=== PATIENT | male | born 1995 | race African-American/Black ===

== ENCOUNTER 2021-05-09 02:00 | Emergency (ER) | payer SELFPAY ==
[2021-05-09] MEDS ORDERED: Mineral Oil ENEMA FS SCH (02:45)
== END 2021-05-09 04:14 | disposition home or self-care (01) ==
LOC: CSHERS 02:00
DX: H61.23 Impacted cerumen, bilateral (principal); F17.210 Nicotine dependence, cigarettes, uncomplicated
CPT/HCPCS: 69210

== ENCOUNTER 2021-05-10 01:14 | Emergency (ER) | payer SELFPAY | END 2021-05-10 02:45 | disposition home or self-care (01) | LOC: CSHERS 01:14 | DX: H61.23 Impacted cerumen, bilateral (principal) | CPT/HCPCS: 99282 ==

== ENCOUNTER 2021-08-06 16:21 | Emergency (ER) | payer SELFPAY | END 2021-08-06 18:34 | disposition home or self-care (01) | LOC: CSHERS 16:21 | DX: S20.212A Contusion of left front wall of thorax, initial encounter (principal); Y04.0XXA Assault by unarmed brawl or fight, initial encounter | CPT/HCPCS: 71045; 93005 ==

== ENCOUNTER 2021-11-01 08:20 | Emergency (ER) | payer SELFPAY ==
[2021-11-01 10:04] LABS: SARS-CoV-2 NAA Rapid Test DETECTED (NotDetected)
== END 2021-11-01 09:09 | disposition home or self-care (01) ==
LOC: CSHERS 08:20
DX: U07.1 COVID-19 (principal); J06.9 Acute upper respiratory infection, unspecified
CPT/HCPCS: 99283; U0002

== ENCOUNTER 2022-01-08 14:22 | Emergency (ER) | payer SELFPAY ==
[2022-01-08] MEDS ORDERED: Dicyclomine 20 MG TAB ONE (17:24)
== END 2022-01-08 17:26 | disposition home or self-care (01) ==
LOC: CSHERS 14:22
DX: R10.84 Generalized abdominal pain (principal)
CPT/HCPCS: 99283

== ENCOUNTER 2022-06-26 10:54 | Emergency (ER) | payer SELFPAY ==
[2022-06-26] MEDS ORDERED: Docusate Sodium 100 MG/10 ML UDCUP FS SCH (14:00)
== END 2022-06-26 13:17 | disposition home or self-care (01) ==
LOC: CSHERS 10:54
DX: H61.23 Impacted cerumen, bilateral (principal)
CPT/HCPCS: 99281

== ENCOUNTER 2022-07-30 10:03 | Emergency (ER) | payer SELFPAY ==
[2022-07-30 10:46] LABS: Bilirubin Neg (Negative); Blood, Urine Negative (Negative); Clarity Clear (Clear); Glucose, Urine (Dipstick) Normal (Negative); Ketone, Urine Negative (Negative); Leukocyte 25 (Negative); Nitrite Negative (Negative); Protein, Urine (Dipstick) 15 mg/dl (Neg-Trace); Specific Gravity, Urine 1.015 (1.005-1.030)
[2022-07-30] MEDS ORDERED: Acetaminophen 500 MG TAB ONE (10:55)
[2022-07-30 11:02] LABS: #Monocytes 0.4 10x3/uL (0.0-1.1); #Neutrophils 3.8 10x3/uL (1.5-8.4); %Basophils 0.5 % (0.0-2.0); %Eosinophils 0.5 % (0.0-6.0); %Lymphocytes 24.6 % (18.0-47.0); %Monocytes 7.3 % (0.0-10.0); %Neutrophils 66.9 % (40.0-75.0); Hemoglobin 14.4 g/dL (13.5-17.5); Mean Corpuscular HGB CONC 32.1 g/dL (32.0-36.0); Mean Corpuscular Hemoglobin 23.7 pg (27.0-33.0); Mean Corpuscular Volume 73.8 fl (81.2-95.1); Mean Platelet Volume 10.9 fl (7.4-10.4); Platelet Count 245 10x3/uL (150-450); RBC Distribution Width 13.6 % (11.5-14.5); Red Blood Cell (RBC) Count 6.08 10x6/uL (4.32-5.72); White Blood Cell (WBC) Count 5.7 10x3/uL (3.5-10.5)
[2022-07-30 11:12] LABS: Bacteria/HPF Rare-Few HPF (None Seen); RBC/HPF 0-3 HPF (0-3); Squamous Epithelial 0-3 HPF (0-3); WBC/HPF 0-3 HPF (0-3)
[2022-07-30 11:13] LABS: ALT (SGPT) 15 U/L (8-55); AST (SGOT) 23 U/L (5-34); Albumin 4.7 g/dL (3.5-5.0); Alkaline Phosphatase 62 U/L (40-110); Anion Gap 14 mmol/L (10-20); BUN (Urea Nitrogen) 14 mg/dL (8.9-20.6); Bilirubin, Total 0.5 mg/dL (0.2-1.2); Calc. Creatinine Clearance 0 mL/min (70-130); Calcium 9.7 mg/dL (7.8-10.44); Carbon Dioxide 24 mmol/L (22-29); Chloride 105 mmol/L (98-107); Estimated GFR 86; Globulin 2.7 g/dL (2.4-3.5); Glucose 89 mg/dL (70-105); Lipase 36 U/L (8-78); Potassium 4.3 mmol/L (3.5-5.1); Protein, Total 7.4 g/dL (6.0-8.3); Sodium 139 mmol/L (136-145)
== END 2022-07-30 11:42 | disposition home or self-care (01) ==
LOC: CSHERS 10:03
DX: R10.13 Epigastric pain (principal)
CPT/HCPCS: 36415; 80053; 81003; 81015; 83690; 85025; 99284